=== PATIENT | female | born 1965 | race Caucasian/White ===

== ENCOUNTER → 2019-10-17 | Outpatient (CLI) | payer OTHER ==
--- NOTE | 2019-10-17 13:31 | MM ---
Reason for exam: clinical finding. History: Patient is postmenopausal. Physical Findings: Nurse Summary: 1 x 1.5cm nodule in the right breast at 5 o'clock (nurse ts). MG Diagnostic Mammo w CAD ZAFAR Bilateral CC and MLO view(s) were taken. XCCM view(s) were taken of the right breast. The breast tissue is heterogeneously dense. This may lower the sensitivity of mammography. There is a left lower outer quadrant 3mm mass at middle depth. Right lobular 2.0cm mass at posterior depth deep to the palpable BB marker in the lower inner quadrant. These results were verbally communicated with the patient and result sheet given to the patient on 10/17/19. ASSESSMENT: Incomplete: need additional imaging evaluation, BI-RAD 0 RECOMMENDATION: Ultrasound of both breasts. (left lower outer quadrant, right palpable)
--- NOTE | 2019-10-17 13:37 | USB ---
Reason for exam: additional evaluation requested from abnormal screening. History: Patient is postmenopausal. US Breast Workup Limited ZAFAR Right limited breast ultrasound including focal area of concern, retroareolar and axilla demonstrates a 0.8 x 0.6 x 1.1cm hypoechoic lesion at 4 o'clock and a 0.5 s 0.4 s 0.4cm oval, hypoechoic lesion at 4 o'clock. Directly adjacent to one another. Biopsy recommended of both components. Left limited breast ultrasound including focal area of concern, retroareolar and axilla demonstrates a 0.2 x 0.2 x 0.3cm oval, hypoechoic lesion at 4 o'clock. The need for biopsy will be made of the results of the above biopsy. These results were verbally communicated with the patient and result sheet given to the patient on 10/17/19. ASSESSMENT: Suspicious, BI-RAD 4 RECOMMENDATION: Ultrasound core biopsy of the right breast. (x 2) Called Dr. Lui's office with mammographic findings. Office was closed. Biopsy scheduled for 11/19/19 at 1:00. PRELIMINARY REPORT CALLED AND FAXED TO DR. LUI ON 10/17/19.
== END | disposition home or self-care (01) ==
LOC: RADMAMWWP 11:01
PROVIDERS: ATTEND Internal Medicine
DX: N63.0 Unspecified lump in unspecified breast (principal)
CPT/HCPCS: 77066

== ENCOUNTER → 2019-11-19 | Outpatient (CLI) | payer OTHER | END | disposition home or self-care (01) | LOC: LABWHC1 08:07 | PROVIDERS: ATTEND Radiology Body Imaging | DX: Z53.9 Procedure and treatment not carried out, unspecified reason (principal) ==

== ENCOUNTER → 2019-11-19 | Day surgery (SDC) | payer OTHER ==
[2019-11-19 08:23] VITALS: RESP 16; TEMP 98
[2019-11-19 10:02] VITALS: BP 120/70; PULSE 50
--- NOTE | 2019-11-19 11:33 | USB ---
EXAMINATION TYPE: US biopsy breast VAD RT DATE OF EXAM: 11/19/2019 CLINICAL HISTORY: 54-year-old female ABNORMAL MAMMOGRAM. Patient reports history of injury with bruising to the medial right breast. TECHNIQUE: Ultrasound guided core biopsy of the right breast. COMPARISON: Ultrasound and mammogram 10/17/2019 FINDINGS: The procedure of ultrasound guided core biopsy was explained to the patient. Benefits, alternatives, and risks were discussed. An informed consent was then obtained. The patient was placed in supine positioning for imaging and for the procedure. The overlying skin was prepped and draped in usual sterile fashion. Lidocaine was used as anesthetic into the skin followed by lidocaine/epinephrine into the subcutaneous tissue up to area of concern in the 4:00 inferior right breast. The 2 adjacent irregular areas are redemonstrated measuring 7 mm apart at the 4:00 position, zone C. The first lesion (more superior) measures 9 x 5 x 7 mm the second lesion (more inferior) measures 11 x 11 x 7 mm. Under ultrasound guidance, a 13-gauge vacuum-assisted mammotome Elite biopsy gun was used to obtain 6 core samples of the more inferior lesion 2 followed by 3 core samples of the more superior lesion 1. Following this, a biopsy clip was left at the site of biopsies. Initially, a coil clip was deployed but could not be adequately visualized on the ultrasound images. Because of this, a second clip (ribbon clip) was also deployed and was adequately visualized at the site of biopsy. Given their close proximity, both areas are sampled together. The patient tolerated the procedure well without any immediate complication. The patient was kept in the radiology department for short stay after the procedure and then discharged home in stable condition. Post biopsy mammogram deferred at this time due to the ongoing COVID pandemic. IMPRESSION: Successful, uncomplicated ultrasound guided core biopsy of two adjacent areas of concern in the 4:00 zone C right breast, full pathology results to follow. Given their close proximity, both areas are sampled together. A coil clip was initially deployed but could not be adequately visualized on the ultrasound images. Therefore, a ribbon clip was subsequently deployed and was adequately visualized at the biopsy site. Post biopsy mammogram deferred at this time due to the ongoing COVID pandemic. 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 Due to the low grade plasmacytoid morphology of areas of the tumor, an e- Cadherin stain is performed; the stain is reactive with tumor cells documenting ductal differentiation. See note. Recommendation Surgical consult of the right breast. Definitive surgical management. Left breast biopsy at 4 o'clock should be considered given the right biopsy proven carcinoma. MTDD
== END ==
LOC: RADUSWWP 08:11
PROVIDERS: ATTEND Internal Medicine
DX: C50.911 Malignant neoplasm of unspecified site of right female breast (principal)
CPT/HCPCS: 88305; 88342; 88341; 19083; A4648; J2001

== ENCOUNTER → 2020-07-05 | Outpatient (CLI) | payer BC ==
--- NOTE | 2020-07-05 13:13 | BD ---
EXAMINATION TYPE: Axial Bone Density DATE OF EXAM: 07/05/2020 COMPARISON: NONE CLINICAL HISTORY: Breast cancer. Postmenopausal female. Height: 64 Weight: 157.3 FRAX RISK QUESTIONS: Alcohol (3 or more units per day): no Family History (Parent hip fracture): no Glucocorticoids (More than 3mos): no (Ex: prednisone, prednisolone, methylprednisolone, dexamethasone, and hydrocortisone). History of Fracture in Adulthood: yes Secondary Osteoporosis: 1. Type 1 Diabetes: no 2. Hyperthyroidism: no 3. Menopause before 45: yes 4. Malnutrition: no 5. Chronic liver disease: no Rheumatoid Arthritis: no Current Tobacco Use: yes RISK FACTORS HISTORY OF: History of Wrist Fracture: left When: 10 years ago Family History of Osteoporosis: no Active: yes Diet low in dairy products/other sources of calcium: yes Postmenopausal woman: age 36 MEDICATIONS: hormone beatrice for breast cancer, vit d, calcium, lipitor Additional History: EXAM MEASUREMENTS: Bone mineral densitometry was performed using the [employer] System. Bone mineral density as measured about the Lumbar spine is: ----- L1-L4(G/cm2): 0.889 T Score Values are as follows: ----- L2: -3.1 ----- L3: -2.7 ----- L4: -1.9 ----- L1-L4: -2.4 Bone mineral density : baseline Bone mineral density about the R hip (g/cm2): 0.904 Bone mineral density about the L hip (g/cm2): 0.867 T Score values are as follows: -----R Neck: -1.0 -----L Neck: -1.2 -----R Total: -1.0 -----L Total: -1.2 Bone mineral density : baseline IMPRESSION: Osteoporosis (T Score less than -2.5) at 2 consecutive levels in the low back. There is increased fracture risk and therapy is usually indicated based on age. Re-Screen 1-2 years. NOTE: T-SCORE=SD OF THE YOUNG ADULT MEAN.
== END | disposition home or self-care (01) ==
LOC: RADBDWWP 10:37
PROVIDERS: ATTEND Internal Medicine Hematology & Oncology
DX: C50.311 Malignant neoplasm of lower-inner quadrant of right female breast (principal); M81.0 Age-related osteoporosis without current pathological fracture; Z79.890 Hormone replacement therapy; Z88.2 Allergy status to sulfonamides
CPT/HCPCS: 77080

== ENCOUNTER → 2020-11-10 | Outpatient (CLI) | payer BC ==
--- NOTE | 2020-11-10 13:48 | MM ---
Reason for exam: additional evaluation requested from prior study. Last mammogram was performed 1 year and 1 month ago. History: Patient is postmenopausal and has history of breast cancer at age 54. Malignant US biopsy breast VAD RT of the right breast, November 19, 2019. Took hormonal contraceptives for 1 year beginning at age 19. Took antineoplastic for 6 months. Physical Findings: Nurse did not find any significant physical abnormalities on exam. MG Diagnostic Mammo w CAD ZAFAR Bilateral CC and MLO view(s) were taken. Prior study comparison: October 17, 2019, bilateral MG diagnostic mammo w CAD ZAFAR. The breast tissue is heterogeneously dense. This may lower the sensitivity of mammography. Previous mammotome biopsy in the left breast. No significant new findings when compared with previous films. These results were verbally communicated with the patient and result sheet given to the patient on 11/10/20. ASSESSMENT: Benign, BI-RAD 2 RECOMMENDATION: Routine screening mammogram of both breasts in 1 year.
== END | disposition home or self-care (01) ==
LOC: RADMAMWWP 12:50
PROVIDERS: ATTEND Radiology Radiation Oncology
DX: C50.311 Malignant neoplasm of lower-inner quadrant of right female breast (principal); F17.210 Nicotine dependence, cigarettes, uncomplicated; Z79.811 Long term (current) use of aromatase inhibitors
CPT/HCPCS: 77066

== ENCOUNTER → 2021-11-11 | Outpatient (CLI) | payer BC ==
--- NOTE | 2021-11-11 11:36 | MM ---
Reason for exam: additional evaluation requested from prior study. Last mammogram was performed 1 year ago. History: Patient is postmenopausal and has history of breast cancer at age 54. Malignant US biopsy breast VAD RT of the right breast, November 19, 2019. Lumpectomy of the right breast, 2019. Radiation therapy of the right breast, 2019. Took hormonal contraceptives for 1 year beginning at age 19. Taking tamoxifen for 1 year. Took antineoplastic for 6 months. Physical Findings: A clinical breast exam by your physician is recommended on an annual basis and results should be correlated with mammographic findings. MG 3D Diag Mammo W/Cad ZAFAR Bilateral CC and MLO view(s) were taken. XCCL view(s) were taken of the right breast. Prior study comparison: November 10, 2020, bilateral MG diagnostic mammo w CAD ZAFAR. October 17, 2019, bilateral MG diagnostic mammo w CAD ZAFAR. There are scattered fibroglandular densities. Finding: Architectural distortion in the lower quadrant, posterior position of the right breast. Previous mammotome biopsy in the left breast at chronic nodularity in the left breast. Asymmetric breast tissue in the left breast, stable. Results were given to the patient verbally at the time of the exam. ASSESSMENT: Benign, BI-RAD 2 RECOMMENDATION: Follow-up diagnostic mammogram of both breasts in 1 year.
== END | disposition home or self-care (01) ==
LOC: RADMAMWWP 10:39
PROVIDERS: ATTEND Radiology Radiation Oncology
DX: C50.311 Malignant neoplasm of lower-inner quadrant of right female breast (principal); F17.210 Nicotine dependence, cigarettes, uncomplicated; Z79.811 Long term (current) use of aromatase inhibitors
CPT/HCPCS: 77062; 77066

== ENCOUNTER → 2022-11-14 | Outpatient (CLI) | payer BC | END | disposition home or self-care (01) | LOC: RADBDWWP 09:07 | PROVIDERS: ATTEND Internal Medicine Hematology & Oncology | DX: Z53.9 Procedure and treatment not carried out, unspecified reason (principal) ==

== ENCOUNTER → 2022-11-14 | Outpatient (CLI) | payer BC ==
--- NOTE | 2022-11-14 10:04 | MM ---
Reason for Exam: Hx of breast cancer, conservation therapy. Last screening mammogram was performed 12 month(s) ago. Patient History: Menarche at age 9. First Full-Term at age 24. Postmenopausal. Breast cancer, right, age 54. Hormonal Contraceptives, starting at age 19 for 1 year. Patient used Tamoxifen for 1 year. 2019, Lumpectomy on the Right side. 11/19/2019, Malignant Core Biopsy on the right side. 2019, Radiation Therapy on the right side. Tissue Density: There are scattered fibroglandular densities. Findings: Analyzed By CAD. Mammotome biopsy clip in the left breast redemonstrated adjacent to a stable 3 mm round mass. Occasional benign-appearing round calcification in the right breast redemonstrated with stable subtle distortion upper outer aspect and surgical clips towards the right axilla also redemonstrated. Benign-appearing left axillary lymph nodes are redemonstrated. No suspicious new mass or worrisome group of microcalcification bilaterally. Overall Assessment: Benign, BI-RAD 2 Management: Diagnostic Mammogram of both breasts in 1 year. A clinical breast exam by your physician is recommended on an annual basis and results should be correlated with mammographic findings. This exam should not preclude additional follow-up of suspicious palpable abnormalities. Results were given to the patient verbally at the time of exam. Electronically signed and approved by: Go Gutierres M.D.
--- NOTE | 2022-11-14 11:07 | BD ---
EXAMINATION TYPE: Axial Bone Density DATE OF EXAM: 11/14/2022 CLINICAL HISTORY: 57 years old Female. ICD-10 CODE: [id number] BREAST CA Comparison: Prior study 2019 Height: 62.2 Weight: 141 FRAX RISK QUESTIONS: History of Fracture in Adulthood: yes Secondary Osteoporosis: yes 3. Menopause before 45: yes Current Tobacco Use: yes RISK FACTORS HISTORY OF: Hip Fracture (Right/Left): yes left wrist 10 yrs ago Postmenopausal woman: yes, 36 yrs old Lost more than 2 inches in height since high school: yes Hyperparathyroidism: no Adrenal Insufficiency: no MEDICATIONS: Osteoporosis Medications: yes, fosamax 1x wk since 2019 Additional Medications: anastrozole, statin for cholesterol, bp meds, vit d and calcium, fosamax, Additional History: hx of right breast cancer, lumpectomy x2 with radiation and hormone beatrice now, cholesterol, EXAM MEASUREMENTS: Bone mineral densitometry was performed using the [employer]. Bone mineral density as measured about the Lumbar spine is: ----- L1-L4(G/cm2): 0.930 T Score Values are as follows: ----- L1: -1.9 ----- L2: -2.6 ----- L3: -2.8 ----- L4: -1.2 ----- L1-L4: -2.1 Z Score Values are as follows: ----- L1: -0.8 ----- L2: -1.5 ----- L3: -1.7 ----- L4: -0.1 ----- L1-L4: -1.0 Bone mineral density has: Increased 4.6% since study of: 07.05.2020 Bone mineral density about the R hip (g/cm2): 0.853 Bone mineral density about the L hip (g/cm2): 0.847 T Score values are as follows: -----R Neck: -1.0 -----L Neck: -1.1 -----R Total: -1.2 -----L Total: -1.3 Z Score values are as follows: -----R Neck: 0.2 -----L Neck: 0.1 -----R Total: -0.4 -----L Total: -0.4 Bone mineral density has: Decreased -2.2% since study of: 07.05.2020 FRAX%s: The graph provided illustrates a 11.8% chance for a major osteoporotic fx and a 1.3% chance f or the hips probability for fx in 10 years time. IMPRESSION: Osteopenia (T Score between -2.5 and -1) is currently present. There is slightly increased risk of fracture and the patient may be considered for treatment. Re-Screen 2-5 years. NOTE: T-SCORE=SD OF THE YOUNG ADULT MEAN.
== END | disposition home or self-care (01) ==
LOC: RADMAMWWP 09:05
PROVIDERS: ATTEND Radiology Radiation Oncology
DX: C50.311 Malignant neoplasm of lower-inner quadrant of right female breast (principal); M85.89 Other specified disorders of bone density and structure, multiple sites; M81.0 Age-related osteoporosis without current pathological fracture; Z78.0 Asymptomatic menopausal state
CPT/HCPCS: 77062; 77066; 77080

== ENCOUNTER → 2023-08-31 | Outpatient (CLI) | payer BC ==
--- NOTE | 2023-08-31 10:03 | CTL ---
EXAMINATION TYPE: CT Low Dose Lung DATE OF EXAM ORDERED: 08/31/2023 HISTORY: 58-year-old female Z12.2 ENCNTR SCREEN FOR MALIGNANT NEOPLASM OF RESP. Lung cancer screening . Personal history of breast cancer. Current smoker with a 20 pack-year history. CT DLP: 2.[address] CTDI: 79.6 mGy Automated exposure control for dose reduction was used. SCREENING VISIT: Baseline COMPARISON: None TECHNIQUE: Low dose computed tomography scan was performed through the chest with coronal and sagitta l reconstructions. CT DIAGNOSTIC QUALITY: Satisfactory FINDINGS: The heart is normal size without pericardial effusion. Aorta normal caliber with conventional arch vessel branching anatomy. Calcified prevascular space lymph nodes suggesting prior granulomatous disease. Small calcified left hilar lymph node. No thoracic adenopathy by CT size criteria. Postsurgical change posterior aspect medial right breast and surgical clips right axilla. Minimal biapical pleural parenchymal scarring. Scattered mild emphysematous change and mild subpleura l interstitial change anterior right lung may correspond to prior radiation therapy. Some minimal subpleural fibrosis anterior right base also noted. Calcified granuloma inferior lingula . * There is a focal irregular opacity measuring 9 mm posterior right upper lobe, axial image 89 which warrants follow-up. * 3 mm anterior right midlung pulmonary nodule, axial image 145. * Tiny 2 mm anterior right midlung pulmonary nodule, axial image 171. * 4 mm posterior right lower lobe pulmonary nodule, axial image 168. * 3 mm right middle lobe pulmonary nodule, axial image 187. Tiny hiatal hernia. Numerous calcified granulomas noted within the spleen. Bones: Mild degenerative disc disease midthoracic spine. IMPRESSION: 1. LUNG RADS Category 4A (suspicious, 5-15% chance of malignancy). 9 mm irregular density posterior r ight upper lobe. Three-month follow-up low-dose CT chest. 2. COPD with mild emphysema. Evidence of prior granulomatous disease. A few additional scattered smal l nodules measure up to 4 mm. Recommend smoking cessation. 3. Postsurgical changes right breast, right axilla, and suggestion of prior radiation therapy changes well. CT LUNG RAD AND CT CHEST RECOMMENDATION: Lung-Rad 4A Suspicious: Follow-up 3 month LDCT or PET/CT may be used when there is a > 8 mm solid component. S Modifier (other clinically significant findings): None
== END | disposition home or self-care (01) ==
LOC: RADCTMAIN 09:30
PROVIDERS: ATTEND Internal Medicine Hematology & Oncology
DX: Z12.2 Encounter for screening for malignant neoplasm of respiratory organs (principal); F17.210 Nicotine dependence, cigarettes, uncomplicated; J44.9 Chronic obstructive pulmonary disease, unspecified; J43.9 Emphysema, unspecified; R91.8 Other nonspecific abnormal finding of lung field; Z98.890 Other specified postprocedural states
CPT/HCPCS: 71271

== ENCOUNTER → 2023-10-05 | Outpatient (CLI) | payer BC ==
--- NOTE | 2023-10-07 23:19 | PE ---
EXAMINATION TYPE: PET CT fusion skull to thigh DATE OF EXAM: 10/05/2023 CLINICAL INDICATION:Female, 58 years old with history of R91.1 Lung nodule; TECHNIQUE: Following the intravenous administration of 11.6 mCi of F-18 FDG, whole body images are performed from the skull base to the midthigh. Images are reviewed on the computer in the coronal, a xial, and sagittal planes. Reconstructed rotating images are created on independent workstation and reviewed on the computer. A non-contrast CT is performed in conjunction with the PET scan. Glucose level 82 mg/dL CT DLP: 3 5 mGycm, Automated exposure control for dose reduction was used. COMPARISON: CT 08/31/2023., PET/CT None, FINDINGS: Mediastinal SUV mean is 2.3. Hepatic parenchyma SUV mean is 2.7. SKULL BASE AND NECK: No suspicious radiotracer activity. CHEST, MEDIASTINUM, AND HILAR REGION: * The area within the right upper lobe with dilated bronchus nearby on prior imaging is not signific antly changed and morphology. On sagittal imaging this has a a flat like appearance suggesting atelec tasis and/or scarring. Max SUV 0.6. * No suspicious FDG activity. ABDOMEN AND PELVIS: No suspicious radiotracer activity. MUSCULOSKELETAL STRUCTURES: No suspicious radiotracer activity. OTHER CT: Scattered mild atherosclerosis of the arterial vasculature. Evidence of chronic granulomato us disease with scattered calcifications in the mediastinum and parenchyma. Calcified granulomas in t he spleen. Scattered colonic diverticula present. IMPRESSION: No suspicious radiotracer activity. Nodule on prior CT has a flat morphology on sagittal imaging. Fin dings favor atelectasis at this time. Short-term follow-up in 3 6 months recommended to ensure stabil ity.
== END | disposition home or self-care (01) ==
LOC: RADPETMAIN 11:16
PROVIDERS: ATTEND Internal Medicine Critical Care Medicine
DX: R91.1 Solitary pulmonary nodule (principal)
CPT/HCPCS: 78815; A9552

== ENCOUNTER → 2023-11-16 | Outpatient (CLI) | payer BC ==
--- NOTE | 2023-11-16 09:52 | MM ---
Reason for Exam: Hx of breast cancer, conservation therapy. Last screening mammogram was performed 12 month(s) ago. Patient History: Menarche at age 9. First Full-Term at age 24. Postmenopausal. Breast cancer, right, age 54. Hormonal Contraceptives, starting at age 19 for 1 year. Patient used Tamoxifen for 1 year. 2019, Lumpectomy on the Right side. 11/19/2019, Malignant Core Biopsy on the right side. 2019, Radiation Therapy on the right side. Prior Study Comparison: 11/10/2020 Bilateral Diagnostic Mammogram, [facility]. 11/11/2021 Bilateral Diagnostic Mammogram, [facility]. 11/14/2022 Bilateral MG 3D diag mammo w/cad ZAFAR, [facility]. Tissue Density: There are scattered areas of fibroglandular density. Findings: Analyzed By CAD. The pattern is symmetrical. No significant interval change is evident. Focal asymmetries in the upper outer anterior left breast, stable from comparison. Core marker is within the left breast. Benign calcification is within the right breast. No suspicious groups of microcalcifications, spiculated or lobular masses, architectural distortion or other secondary signs of malignancy are mammographically apparent. Overall Assessment: Benign, BI-RAD 2 Management: Screening Mammogram of both breasts in 1 year. A negative mammogram report should not preclude additional follow up of suspicious palpable abnormalities. Patient should continue monthly self breast exam. A clinical breast exam by your physician is recommended on an annual basis and results should be correlated with mammographic findings. Note on Neda scores and lifetime risk: 1. A Neda score greater than 3% is considered moderate risk. If this is the case, consider specialist referral to assess eligibility for a risk reducing agent. 2. If overall lifetime risk for the development of breast cancer is 20% or higher, the patient may qualify for future screening with alternating mammogram and breast MRI. Electronically signed and approved by: Cesar White D.O. Radiologis
== END | disposition home or self-care (01) ==
LOC: RADMAMWWP 09:24
PROVIDERS: ATTEND Internal Medicine
DX: R92.323 Mammographic fibroglandular density, bilateral breasts (principal); D05.11 Intraductal carcinoma in situ of right breast; R92.1 Mammographic calcification found on diagnostic imaging of breast; Z78.0 Asymptomatic menopausal state
CPT/HCPCS: 77066

== ENCOUNTER → 2024-04-07 | Outpatient (CLI) | payer BC ==
--- NOTE | 2024-04-07 11:39 | CT ---
EXAMINATION TYPE: CT chest w con CT DLP: 347.2 mGycm, Automated exposure control for dose reduction was used. DATE OF EXAM: 04/07/2024 11:32 AM COMPARISON: 10/05/2023 CT/PET CLINICAL INDICATION: Female, 58 years old with history of R91.1 SPN; PHH, nodules TECHNIQUE: Multiple axial images were obtained through the chest. Sagittal and coronal reformats were created for review. Contrast used:100 mL of Isovue 300 with IV Contrast (None if empty) Oral contrast used: (None if empty) FINDINGS: LUNGS/ PLEURA: Few scattered calcified granulomas. No new or enlarging pulmonary nodules. Previous pu lmonary nodules including right upper lung posterior 9 mm nodule is no longer visualized other scatte red smaller pulmonary nodules measuring less than 4 mm remain No focal consolidation, pneumothorax or pleural effusion. There is some scarring in the anterior medial aspect of the right upper lung. AIRWAY: Patent and unremarkable. HEART: Size within normal limits. MEDIASTINUM: No gross evidence of adenopathy. Partially calcified mediastinal lymph nodes are present . Including a prevascular space. VASCULATURE: No aortic aneurysm. MUSCULOSKELETAL: No acute osseous abnormalities SOFT TISSUES/LYMPH NODES: Unremarkable. LOWER NECK: No significant findings. UPPER ABDOMEN: No significant findings. Scattered calcified granulomas in the spleen. IMPRESSION: 1. Resolution of right upper lobe 9 mm pulmonary nodule. No suspicious or new or enlarging pulmonary nodules. 2. Sequela of chronic granulomatous disease
== END | disposition home or self-care (01) ==
LOC: RADCTMAIN 11:06
PROVIDERS: ATTEND Internal Medicine Critical Care Medicine
DX: R91.1 Solitary pulmonary nodule
CPT/HCPCS: 71260

== ENCOUNTER → 2024-11-17 | Outpatient (CLI) | payer BC ==
--- NOTE | 2024-11-17 08:59 | MM ---
Reason for Exam: Hx of breast cancer, conservation therapy. Last screening mammogram was performed 12 month(s) ago. Patient History: Menarche at age 9. First Full-Term at age 24. Postmenopausal. Breast cancer, right, age 54. Hormonal Contraceptives, starting at age 19 for 1 year. Patient used Tamoxifen for 1 year. 2019, Lumpectomy on the Right side. 11/19/2019, Malignant Core Biopsy on the right side. 2019, Radiation Therapy on the right side. Prior Study Comparison: 10/17/2019 Bilateral Diagnostic Mammogram, [facility]. 11/10/2020 Bilateral Diagnostic Mammogram, [facility]. 11/11/2021 Bilateral Diagnostic Mammogram, [facility]. 11/14/2022 Bilateral MG 3D diag mammo w/cad ZAFAR, [facility]. 11/16/2023 Bilateral MG diagnostic mammo w CAD ZAFAR, [facility]. Tissue Density: The breasts are heterogeneously dense, which may obscure small masses. Findings: Analyzed By CAD. There is no suspicious group of microcalcifications or new suspicious mass in either breast. Overall Assessment: Negative, BI-RAD 1 Management: Screening Mammogram of both breasts in 1 year. . Patient should continue monthly self-breast exams. A clinical breast exam by your physician is recommended on an annual basis. This exam should not preclude additional follow-up of suspicious palpable abnormalities. Note on Neda scores and lifetime risk: 1. A Neda score greater than 3% is considered moderate risk. If this is the case, consider specialist referral to assess eligibility for a risk reducing agent. 2. If overall lifetime risk for the development of breast cancer is 20% or higher, the patient may qualify for future screening with alternating mammogram and breast MRI. [facility], , 11/17/2024 8:57 AM. Electronically signed and approved by: Fritz Gruber M.D. Radiologis
== END | disposition home or self-care (01) ==
LOC: RADMAMWWP 08:31
PROVIDERS: ATTEND Internal Medicine
DX: Z12.31 Encounter for screening mammogram for malignant neoplasm of breast (principal); R92.333 Mammographic heterogeneous density, bilateral breasts; Z78.0 Asymptomatic menopausal state; Z85.3 Personal history of malignant neoplasm of breast; Z92.0 Personal history of contraception
CPT/HCPCS: 77067